=== PATIENT | female | born 2005 | race Two or more races ===

== ENCOUNTER 2024-04-14 16:14 | Emergency (ER) | payer MEDICAID ==
[~2024-04-14] VITALS: Ht 154.9 cm; Wt 75.0 kg
[2024-04-14 16:16] VITALS: BP 130/83; PULSE 88; RESP 18; TEMP 98; O2SAT 99
[2024-04-14] MEDS ORDERED: SERT-158 PO (16:18)
== END 2024-04-14 18:53 | disposition left against medical advice (07) ==
LOC: EMS 16:14
DX: F41.9 Anxiety disorder, unspecified (principal); Z53.21 Procedure and treatment not carried out due to patient leaving prior to being seen by health care provider